=== PATIENT | male | born 1975 | race Caucasian/White ===

== ENCOUNTER 2019-10-23 09:20 | Outpatient (CLI) | payer OTHER, SELFPAY ==
--- NOTE | 2019-10-23 | XR_ITS ---
WS: [id number] SHOULDER LEFT TECHNIQUE: 3 views of the left shoulder CLINICAL INFORMATION: CHRONIC LT SHOULDER PAIN COMPARISON: None. FINDINGS: Normal acromioclavicular joint. Normal glenohumeral joint. Acromion is normal in appearance. Normal g lenoid. No evidence of acute fracture dislocation. XR/XR shoulder LT min 2V* [id number] IMPRESSION: Normal left shoulder.
== END 2019-10-23 09:21 | disposition home or self-care (01) ==
LOC: RADOUTREAD 10-24 09:21
PROVIDERS: Family Provider Family Medicine; PCP Family Medicine; Visit Provider Nurse Practitioner
DX: M25.512 Pain in left shoulder (principal); G89.29 Other chronic pain

== ENCOUNTER → 2023-11-15 10:51 | Outpatient (BNVA) | payer OTHER, SELFPAY | PROVIDERS: Family Provider Family Medicine; PCP Family Medicine; Visit Provider Podiatrist Foot & Ankle Surgery | DX: M76.61 Achilles tendinitis, right leg | CPT/HCPCS: 73630 ==

== ENCOUNTER 2023-11-15 11:39 | Outpatient (CLI) | payer OTHER, SELFPAY | END 2023-11-15 11:40 | disposition home or self-care (01) | LOC: SPT 11:40 | PROVIDERS: Family Provider Family Medicine; PCP Family Medicine; Visit Provider Podiatrist Foot & Ankle Surgery | DX: Z46.89 Encounter for fitting and adjustment of other specified devices (principal); M76.61 Achilles tendinitis, right leg | CPT/HCPCS: 97760; L4397 ==

== ENCOUNTER → 2024-12-04 14:13 | Outpatient (BNVA) | payer OTHER, SELFPAY | PROVIDERS: Family Provider Family Medicine; PCP Family Medicine; Visit Provider Specialist | DX: M67.912 Unspecified disorder of synovium and tendon, left shoulder (principal); M25.812 Other specified joint disorders, left shoulder | CPT/HCPCS: 73030 ==

== ENCOUNTER 2024-12-24 06:59 | Outpatient (CLI) | payer OTHER, SELFPAY ==
--- NOTE | 2024-12-24 07:15 | MR_ITS ---
WS: [id number] MRI LEFT SHOULDER NONCONTRAST TECHNIQUE: Sagittal T2, coronal T1, T2 and proton density imaging. Axial gradient PDE imaging. CLINICAL INFORMATION: shoulder pain COMPARISON: None. FINDINGS: Moderate degenerative arthritis at the AC joint with small amount of fluid and edema. Mild narrowing of the subacromial space. Supraspinatus and infraspinatus appear intact. Trace subacromial fluid. Tiny insertional tear distal supraspinatus insertion. Normal teres minor. Subscapularis tendon appears intact. Normal biceps tendon in the bicipital groove. Intra-articular biceps tendon appears intact. Normal bone marrow signal in the humeral head and glenoid. No significant joint effusion. Biceps labral anchor appears intact. MR/MR shoulder LT wo con* [id number] IMPRESSION: 1. Moderate degenerative arthritis AC joint with small amount of fluid and blanca ma. Trace subacromial fluid. 2. Rotator cuff appears intact. 3. Tiny tear distal supraspinatus insertion. Mild tendinopathy supraspinatus. 4. Biceps tendon appears intact within the bicipital groove. Intra-articular b iceps tendon appears intact. 5. No other acute findings.
== END 2024-12-24 07:00 | disposition home or self-care (01) ==
PROVIDERS: Family Provider Family Medicine; PCP Family Medicine; Visit Provider Specialist
DX: M67.912 Unspecified disorder of synovium and tendon, left shoulder (principal); M19.012 Primary osteoarthritis, left shoulder; R93.6 Abnormal findings on diagnostic imaging of limbs
CPT/HCPCS: 73221

== ENCOUNTER 2025-01-28 07:17 | Outpatient (RCR) | payer OTHER, SELFPAY | END 2025-02-05 23:59 | disposition home or self-care (01) | LOC: SPT 07:17 | PROVIDERS: Visit Provider Specialist | DX: M67.912 Unspecified disorder of synovium and tendon, left shoulder (principal); M25.812 Other specified joint disorders, left shoulder | CPT/HCPCS: 97110; 97161 ==

== ENCOUNTER 2025-02-06 05:00 | Outpatient (RCR) | payer OTHER, SELFPAY | END 2025-03-08 23:59 | disposition home or self-care (01) | LOC: SPT 05:00 | PROVIDERS: Visit Provider Specialist | DX: M67.912 Unspecified disorder of synovium and tendon, left shoulder (principal); M25.812 Other specified joint disorders, left shoulder; S29.011D Strain of muscle and tendon of front wall of thorax, subsequent encounter; X58.XXXD Exposure to other specified factors, subsequent encounter | CPT/HCPCS: 97110; 97164 ==

== ENCOUNTER 2025-03-09 05:00 | Outpatient (RCR) | payer OTHER, SELFPAY | END 2025-04-07 06:51 | disposition home or self-care (01) | LOC: SPT 05:00 | PROVIDERS: Visit Provider Specialist | DX: M67.912 Unspecified disorder of synovium and tendon, left shoulder (principal); M25.812 Other specified joint disorders, left shoulder; S29.011D Strain of muscle and tendon of front wall of thorax, subsequent encounter; X58.XXXD Exposure to other specified factors, subsequent encounter | CPT/HCPCS: 97110 ==

== ENCOUNTER → 2025-07-29 14:44 | Outpatient (BNVA) | payer OTHER, SELFPAY | PROVIDERS: PCP Electrodiagnostic Medicine; Visit Provider Podiatrist Foot & Ankle Surgery | DX: M79.671 Pain in right foot (principal); M79.672 Pain in left foot; M72.2 Plantar fascial fibromatosis; M76.61 Achilles tendinitis, right leg | CPT/HCPCS: 73630 ==

== ENCOUNTER 2025-09-08 15:58 | Outpatient (CLI) | payer OTHER, SELFPAY | END 2025-09-08 15:59 | disposition home or self-care (01) | LOC: SPT 15:59 | PROVIDERS: PCP Electrodiagnostic Medicine; Visit Provider Podiatrist Foot & Ankle Surgery | DX: Z46.89 Encounter for fitting and adjustment of other specified devices (principal); M76.60 Achilles tendinitis, unspecified leg; M72.2 Plantar fascial fibromatosis | CPT/HCPCS: L3030 ==